=== PATIENT | female | born 1945 | race Caucasian/White ===

== ENCOUNTER 2017-07-15 09:22 | Outpatient (CLI) | payer OTHER | END 2017-07-15 14:33 | disposition home or self-care (01) | LOC: MAMO-SONO 09:22 | DX: Z12.31 Encounter for screening mammogram for malignant neoplasm of breast (principal); Z87.898 Personal history of other specified conditions ==

== ENCOUNTER → 2017-07-15 | Outpatient (CLI) | payer OTHER | END | disposition home or self-care (01) | LOC: NUCLEAR 11:09 | DX: M81.0 Age-related osteoporosis without current pathological fracture (principal) ==